=== PATIENT | female | born 1995 | race Caucasian/White ===

== ENCOUNTER 2017-05-07 18:37 | Emergency (ER) | payer MEDICAID ==
[~2017-05-07] VITALS: Ht 152.4 cm; Wt 64.0 kg
[2017-05-07 18:46] VITALS: BP 111/68
[2017-05-07] MEDS ORDERED: NO HOME MEDICATIONS (18:49)
[2017-05-07] MEDS ORDERED: IBUPROFEN 600MG TABLET PO ONE (20:15)
== END 2017-05-07 20:40 | disposition home or self-care (01) ==
LOC: ER 18:56
DX: M65.4 Radial styloid tenosynovitis [de Quervain] (principal); Z88.0 Allergy status to penicillin
CPT/HCPCS: 29125; 99283

== ENCOUNTER 2019-04-15 11:34 | Inpatient (IN) | payer SELFPAY ==
[~2019-04-15] VITALS: Ht 152.4 cm; Wt 59.9 kg
[~2019-04-15 11:34] MED LIST: NO HOME MEDICATIONS
[2019-04-15] MEDS ORDERED: ONDANSETRON HCL 4MG/2ML INJ IV STA (12:28)
[2019-04-15] MEDS ORDERED: MORPHINE SULFATE 4 MG/ML CPJ (NOT FOR IM USE) IV STA (12:28)
[2019-04-15] MEDS ORDERED: SODIUM CHLORIDE 0.9% 1,000 ML IV ONE ×2 (12:28→17:10)
[2019-04-15 12:46] LABS: HEMATOCRIT. 43.7 % (36.0-48.0); HEMOGLOBIN. 14.6 g/dL (12.0-16.0); MEAN CORPUSCULAR HEMOGLOBIN 29.7 pg (28.0-32.0); MEAN CORPUSCULAR VOLUME 88.9 fL (81.0-99.0); MEAN PLATELET VOLUME 8.6 fl (7.4-10.4); PLATELET 306 x1000/uL (130-400); RED BLOOD CELL COUNT 4.91 mill/uL (4.2-5.4); RED CELL DISTRIBUTION WIDTH 13.7 % (11.6-14.6)
[2019-04-15 12:53] LABS: CHLORIDE 105 mEq/L (98-107)
[2019-04-15 12:55] LABS: HCG SCREEN NEGATIVE; PROTHROMBIN TIME 10.3 sec (9.6-11.0)
[2019-04-15 13:10] LABS: PLATELET ESTIMATE NORMAL
[2019-04-15 14:24] LABS: CLARITY URINE CLOUDY (CLEAR); COLOR URINE DARK YELLOW (YELLOW); KETONES URINE 4+ (NEGATIVE); LEUKOCYTE ESTERASE URINE 2+ (NEGATIVE); NITRITE URINE NEGATIVE (NEGATIVE); OCCULT BLOOD URINE NEGATIVE (NEGATIVE); PH URINE 5.5 (4.5-8.0); PROTEIN URINE TRACE (NEGATIVE); SPECIFIC GRAVITY URINE 1.016 (1.005-1.030)
[2019-04-15] MEDS ORDERED: CEFOXITIN SODIUM 2 G in DEXT 5% WATER 100 ML IV SCH (16:00)
[2019-04-15] MEDS ORDERED: MORPHINE SULFATE 4 MG/ML CPJ (NOT FOR IM USE) IV ONE (16:00)
[2019-04-15] MEDS ORDERED: METRONIDAZOLE 500 MG PREMIX 100 ML IV ONE (16:45)
[2019-04-15] MEDS ORDERED: CEFTRIAXONE 1 G PREMIX 50 ML IV ONE (16:45)
[2019-04-15] MEDS ORDERED: ACETAMINOPHEN 325MG TABLET PO PRN (17:45)
[2019-04-15] MEDS ORDERED: NITROGLYCERIN 0.4MG TABLET SL SL PRN (17:45)
[2019-04-15] MEDS ORDERED: ZOLPIDEM TARTRATE 5MG TABLET PO PRN (17:45)
[2019-04-15] MEDS ORDERED: IPRATROPIUM/ALBUTEROL 0.5-3(2.5)MG/3ML NEB NEB PRN (17:45)
[2019-04-15] MEDS ORDERED: MAGNESIUM/ALUMINUM HYDROXIDE/SIMETHICONE 30ML UDC PO PRN (17:45)
[2019-04-15] MEDS ORDERED: ONDANSETRON HCL 4MG/2ML INJ IV PRN (17:45)
[2019-04-15] MEDS ORDERED: DIPHENHYDRAMINE 50MG/ML VIAL IV PRN (17:45)
[2019-04-15] MEDS ORDERED: LORAZEPAM 2MG/ML CPJ IV PRN (17:45)
[2019-04-15] MEDS ORDERED: GUAIFENESIN 200MG/10ML SUGAR FREE UDC PO PRN (17:45)
[2019-04-15] MEDS ORDERED: TRAMADOL 50MG TABLET PO PRN (17:45)
[2019-04-15] MEDS ORDERED: CLONIDINE 0.1MG TABLET PO PRN (17:45)
[2019-04-15] MEDS ORDERED: DOCUSATE SODIUM 100MG CAPSULE PO PRN (17:45)
[2019-04-15 20:00] VITALS: BP 105/65
[2019-04-15] MEDS: MORPHINE SULFATE 2 MG/ML CPJ (NOT FOR IM USE) IV PRN (20:26)
[2019-04-15 22:00] VITALS: BP 105/65
[2019-04-15] MEDS ORDERED: LEVOFLOXACIN 500MG PREMIX 100 ML IV SCH (22:00)
[2019-04-16] VITALS: BP 111/69
[2019-04-16] MEDS: METRONIDAZOLE 500 MG PREMIX 100 ML IV SCH ×3 (03:05→20:58)
[2019-04-16 04:00] VITALS: BP 98/60
[2019-04-16 07:10] LABS: BASOPHILS % 0.2 % (0.0-2.0); EOSINOPHILS % 0.2 % (0.0-5.0); HEMATOCRIT. 38.5 % (36.0-48.0); HEMOGLOBIN. 12.9 g/dL (12.0-16.0); LYMPHOCYTES % 8.2 % (20.0-50.0); MEAN CORPUSCULAR VOLUME 89.6 fL (81.0-99.0); MEAN PLATELET VOLUME 8.6 fl (7.4-10.4); MONOCYTES % 4.7 % (2.0-8.0); NEUTROPHILS % 86.7 % (40.0-76.0); PLATELET 269 x1000/uL (130-400)
[2019-04-16 07:24] LABS: CHLORIDE 109 mEq/L (98-107)
[2019-04-16 08:00] VITALS: BP 95/60
[2019-04-16 08:16] LABS: AMYLASE 1482 IU/L (25-115)
[2019-04-16] MEDS: PANTOPRAZOLE SODIUM 40 MG/VIAL IV SCH (08:57)
[2019-04-16 10:22] LABS: *BARBITURATES SCREEN URINE NEGATIVE (NEGATIVE); *BENZODIAZEPINES SCREEN URINE NEGATIVE (NEGATIVE); *COCAINE SCREEN URINE NEGATIVE (NEGATIVE); METHADONE URINE SCREEN NEGATIVE (NEGATIVE)
[2019-04-16 10:23] LABS: *AMPHETAMINES SCREEN URINE NEGATIVE (NEGATIVE); CANNABINOID URINE SCREEN NEGATIVE (NEGATIVE); PHENCYCLIDINE URINE SCREEN NEGATIVE (NEGATIVE)
[2019-04-16 10:25] LABS: OPIATES URINE SCREEN PRESUMTIVE POSITIVE (NEGATIVE)
[2019-04-16 12:00] VITALS: BP 101/58
[2019-04-16] MEDS: MORPHINE SULFATE 2 MG/ML CPJ (NOT FOR IM USE) IV PRN (15:12)
[2019-04-16 16:00] VITALS: BP 95/63
[2019-04-16 20:00] VITALS: BP 96/58
[2019-04-16] MEDS: SODIUM CHLORIDE 0.9% 1,000 ML IV SCH (21:00)
[2019-04-17] VITALS: BP 100/59
[2019-04-17] MEDS: LEVOFLOXACIN 500MG PREMIX 100 ML IV SCH ×2 (00:20→23:37)
[2019-04-17] MEDS: SODIUM CHLORIDE 0.9% 1,000 ML IV SCH ×3 (00:21→21:05)
[2019-04-17] MEDS: MORPHINE SULFATE 2 MG/ML CPJ (NOT FOR IM USE) IV PRN (02:56)
[2019-04-17] MEDS: METRONIDAZOLE 500 MG PREMIX 100 ML IV SCH ×3 (02:57→21:05)
[2019-04-17 04:00] VITALS: BP 106/65
[2019-04-17 07:55] LABS: CHLORIDE 111 mEq/L (98-107)
[2019-04-17 08:00] VITALS: BP 90/57
[2019-04-17 08:03] LABS: BASOPHILS % 0.1 % (0.0-2.0); EOSINOPHILS % 1.8 % (0.0-5.0); HEMATOCRIT. 33.1 % (36.0-48.0); HEMOGLOBIN. 11.1 g/dL (12.0-16.0); LYMPHOCYTES % 12.6 % (20.0-50.0); MEAN CORPUSCULAR HEMOGLOBIN 30.1 pg (28.0-32.0); MEAN CORPUSCULAR VOLUME 89.4 fL (81.0-99.0); MEAN PLATELET VOLUME 8.8 fl (7.4-10.4); MONOCYTES % 5.3 % (2.0-8.0); NEUTROPHILS % 80.2 % (40.0-76.0); PLATELET 234 x1000/uL (130-400); RED CELL DISTRIBUTION WIDTH 13.8 % (11.6-14.6)
[2019-04-17 08:12] LABS: AMYLASE 960 IU/L (25-115)
[2019-04-17] MEDS: PANTOPRAZOLE SODIUM 40 MG/VIAL IV SCH (08:14)
[2019-04-17 12:00] VITALS: BP 91/52
[2019-04-17] MEDS ORDERED: KCL 20MEQ/100ML PREMIX 100 ML IV SCH (12:00)
[2019-04-17 16:00] VITALS: BP 80/53
[2019-04-17 20:00] VITALS: BP 86/52
[2019-04-17] MEDS ORDERED: ALBUMIN HUMAN 25GM/100ML (25%) IV NR (21:00)
[2019-04-18] VITALS: BP 104/64
[2019-04-18 04:00] VITALS: BP 102/65
[2019-04-18] MEDS: METRONIDAZOLE 500 MG PREMIX 100 ML IV SCH ×2 (04:31→12:00)
[2019-04-18] MEDS: SODIUM CHLORIDE 0.9% 1,000 ML IV SCH ×5 (04:32→12:07)
[2019-04-18 06:50] LABS: BASOPHILS % 0.2 % (0.0-2.0); EOSINOPHILS % 1.7 % (0.0-5.0); HEMOGLOBIN. 11.4 g/dL (12.0-16.0); LYMPHOCYTES % 12.8 % (20.0-50.0); MEAN CORPUSCULAR VOLUME 89.2 fL (81.0-99.0); MEAN PLATELET VOLUME 8.5 fl (7.4-10.4); MONOCYTES % 5.1 % (2.0-8.0); NEUTROPHILS % 80.2 % (40.0-76.0); PLATELET 243 x1000/uL (130-400); RED BLOOD CELL COUNT 3.81 mill/uL (4.2-5.4); RED CELL DISTRIBUTION WIDTH 13.2 % (11.6-14.6)
[2019-04-18 07:06] LABS: CHLORIDE 110 mEq/L (98-107)
[2019-04-18 07:10] LABS: AMYLASE 480 IU/L (25-115)
[2019-04-18 08:00] VITALS: BP 95/56
[2019-04-18] MEDS: PANTOPRAZOLE SODIUM 40 MG/VIAL IV SCH (08:35)
[2019-04-18 10:50] VITALS: BP 128/84
[2019-04-18] MEDS ORDERED: POTASSIUM CHLORIDE 20MEQ TABLET SR PO NR (11:00)
== END 2019-04-18 16:52 | disposition home or self-care (01) | DRG 463 ==
LOC: ER 11:34 → 6EST 17:00 → EDBEDREQTM 17:08 → EDBEDREQ 17:08 → ENRESERV 17:53
PROVIDERS: ADMIT Internal Medicine; ATTEND Internal Medicine
DX: N39.0 Urinary tract infection, site not specified (principal); K85.10 Biliary acute pancreatitis without necrosis or infection; Z91.048 Other nonmedicinal substance allergy status
CPT/HCPCS: 36415; 74181; 76700; 80305; 81003; 82150; 83036; 84703; 99285; C9113; J0696; J1956; J2270; J2405; J3480; J3490; J7030; P9047

== ENCOUNTER 2024-07-16 21:57 | Emergency (ER) | payer MEDICAID ==
[~2024-07-16] VITALS: Ht 152.4 cm; Wt 82.0 kg
[2024-07-16 22:27] VITALS: BP 108/74; PULSE 130; RESP 18; TEMP 99.1; O2SAT 97
== END 2024-07-17 03:19 | disposition left against medical advice (07) ==
LOC: ER 21:57
DX: R05.9 Cough, unspecified (principal); R50.9 Fever, unspecified; R52 Pain, unspecified; R00.0 Tachycardia, unspecified; Z53.21 Procedure and treatment not carried out due to patient leaving prior to being seen by health care provider; Z98.890 Other specified postprocedural states
CPT/HCPCS: 93005